=== PATIENT | male | born 1955 | race Caucasian/White ===

== ENCOUNTER 2016-08-18 09:36 | Inpatient (IN) | payer BC ==
[~2016-08-18] VITALS: Ht 182.9 cm; Wt 78.5 kg
[~2016-08-18 09:36] MED LIST: AMLO2.5T78 PO; DIPH1TAB25 PO; OXYC-284 PO
[2016-08-18] MEDS ORDERED: SOD CHLORIDE 0.9% 1,000 ML IV STA (09:57)
[2016-08-18 10:21] LABS: ADD SCAN DIFF NO
--- NOTE | 2016-08-18 10:28 | ERA ---
ER Documentation Chief Complaint Date/Time DATE: 08/18/16 TIME: 10:26 Chief Complaint Sent by clinic for blood transfusion Hgb 6.6 HPI This 61-year-old male was called by clinic to inform him of labs last Sunday showing he had a hemoglobin of 6.6. Patient is very symptomatic and states that he cannot walk 20 feet without getting so tired that he has to sit down he feels like is going to pass out. Also has shortness of breath. He is currently receiving chemotherapy for skin cancer. Last chemo was 2 weeks ago. He has not received a transfusion prior. Denies chest pain. Has nausea on and off but none currently. ROS All systems reviewed and are negative except as per history of present illness. Medications Home Meds Discontinued Reported Medications Capecitabine* (Xeloda*) 500 Mg Tablet, 500 MG PO TID for 28 Days, #84 TAB 08/18/16 Diphenoxylate Hcl-Atropine* (Lomotil*) 1 Tab Tab, 5 MG PO Q6H Y for DIARRHEA, TAB 01/15/15 Oxycodone Hcl-Acetaminophen* (Percocet*) 10-325 Mg Tablet, 1 TAB PO Q4H Y for PAIN, TAB 01/08/15 Discontinued Scripts Amlodipine Besylate* (Amlodipine Besylate*) 2.5 Mg Tablet, 5 MG PO DAILY, #30 TAB 1 Refill Prov:DAWIT CHU MD 01/15/15 Allergies Allergies: Coded Allergies: No Known Allergy (Unverified , 08/18/16) PMhx/Soc History of Surgery: Yes (HERNIA SX, CATARACT SX) Anesthesia Reaction: No Hx Neurological Disorder: No Hx Respiratory Disorders: No Hx Cardiac Disorders: Yes (HTN, 2013) Hx Psychiatric Problems: No Hx Miscellaneous Medical Probl: Yes (HIGH CHOLESTEROL) Hx Alcohol Use: No Hx Substance Use: No Hx Tobacco Use: No Smoking Status: Never smoker Physical Exam Vitals Vital Signs Date Time Temp Pulse Resp B/P Pulse Ox O2 Delivery O2 Flow Rate FiO2 08/18/16 10:22 Nasal Cannula 08/18/16 09:49 98.6 90 18 98/57 99 Physical Exam Const: [] Mild distress Head: Atraumatic Eyes: Normal Conjunctiva ENT: Normal External Ears, Nose and Mouth. Neck: Full range of motion..~ No meningismus. Resp: Clear to auscultation bilaterally Cardio: Regular rate and rhythm, no murmurs Abd: Soft, non tender, non distended. Normal bowel sounds Skin: No petechiae or rashes, pale Back: No midline or flank tenderness Ext: No cyanosis, or edema Neur: Awake and alert and oriented 3, no focal deficit Psych: Normal Mood and Affect Result Diagram: 08/19/16 0510 08/19/16 0510 Results 24 hrs Laboratory Tests Test 08/18/16 10:06 White Blood Count 1.510^3/ul Red Blood Count 1.7910^6/ul Hemoglobin 6.5g/dl Hematocrit 18.9% Mean Corpuscular Volume 105.6fl Mean Corpuscular Hemoglobin 36.3pg Mean Corpuscular Hemoglobin Concent 34.4g/dl Red Cell Distribution Width 15.6% Platelet Count 69918^3/UL Mean Platelet Volume 10.1fl Neutrophils % 42.0% Band Neutrophils % 15.0% Lymphocytes % 42.0% Monocytes % 1.0% Neutrophils # 0.610^3/ul Lymphocytes # 0.610^3/ul Monocytes # 0.010^3/ul Prothrombin Time 13.8Sec Prothrombin Time Ratio 1.1 INR International Normalized Ratio 1.06 Activated Partial Thromboplast Time 25.8Sec Sodium Level 138mmol/L Potassium Level 4.0mmol/L Chloride Level 102mmol/L Carbon Dioxide Level 26mmol/L Anion Gap 14 Blood Urea Nitrogen 29mg/dl Creatinine 2.00mg/dl Glucose Level 107mg/dl Calcium Level 7.0mg/dl Total Bilirubin 0.2mg/dl Direct Bilirubin 0.00mg/dl Indirect Bilirubin 0.2mg/dl Aspartate Amino Transf (AST/SGOT) 15IU/L Alanine Aminotransferase (ALT/SGPT) 21IU/L Alkaline Phosphatase 73IU/L Troponin I < 0.012ng/ml Total Protein 6.3g/dl Albumin 4.3g/dl Globulin 2.00g/dl Albumin/Globulin Ratio 2.15 Current Medications Medications (Trade) Dose Ordered Sig/Andrey Route PRN Reason Start Time Stop Time Status Last Admin Dose Admin Sodium Chloride (NS) 1,000 ml @ 1,000 mls/hr Q1H STAT IV 08/18/16 09:57 08/18/16 10:56 DC 08/18/16 10:25 Procedures/MDM Acute symptomatic anemia likely secondary to bone marrow suppression from chemotherapy. Renal insufficiency. He has obvious symptoms of decreased oxygen carrying capacity with no evidence of myocardial injury yet. He will be admitted to prevent any further compensation. IV fluid and PRBC transfusion started in ER. He will be admitted for monitoring and further workup. EKG interpretation: Normal sinus rhythm rate of 80, left axis deviation, no ST or T-wave changes concerning for acute ischemia, normal intervals. performance improvement analyst interpretation: Normal sinus rhythm without arrhythmia Departure Diagnosis: Primary Impression: Symptomatic anemia Additional Impression: Renal insufficiency Condition: RAUL Torres DO Aug 18, 2016 10:28
[2016-08-18 10:31] LABS: ABNORMAL IP MESSAGE 1; HEMATOCRIT 18.9 % (42.0-52.0); MEAN CORPUSCULAR HEMOGLOBIN 36.3 pg (29.0-33.0); MEAN CORPUSCULAR HGB CONC 34.4 g/dl (32.0-37.0); MEAN CORPUSCULAR VOLUME 105.6 fl (82.0-101.0); MEAN PLATELET VOLUME 10.1 fl (7.4-10.4); PLATELET COUNT 132 10^3/UL (140-415); RED BLOOD COUNT 1.79 10^6/ul (4.70-6.10); RED CELL DISTRIBUTION WIDTH 15.6 % (11.5-14.5); WHITE BLOOD COUNT 1.5 10^3/ul (4.8-10.8)
[2016-08-18 10:44] LABS: ALANINE AMINOTRANSFERASE 21 IU/L (13-69); ALBUMIN 4.3 g/dl (3.3-4.9); ALBUMIN/GLOBULIN RATIO 2.15; ALKALINE PHOSPHATASE 73 IU/L (42-121); ANION GAP 14 (8-16); ASPARTATE AMINO TRANSFERASE 15 IU/L (15-46); BILIRUBIN,INDIRECT 0.2 mg/dl (0-1.1); BILIRUBIN,TOTAL 0.2 mg/dl (0.2-1.3); BLOOD UREA NITROGEN 29 mg/dl (7-20); CARBON DIOXIDE 26 mmol/L (21-31); CHLORIDE 102 mmol/L (97-110); GLUCOSE 107 mg/dl (70-220); SODIUM 138 mmol/L (135-144); TOTAL PROTEIN 6.3 g/dl (6.1-8.1)
[2016-08-18 10:46] LABS: INR 1.06; PROTIME 13.8 Sec (12.2-14.2); PT RATIO 1.1
[2016-08-18 10:47] LABS: PARTIAL THROMBOPLASTIN TIME 25.8 Sec (25.0-35.0)
[2016-08-18 10:57] LABS: TROPONIN-I < 0.012 ng/ml (0.00-0.12)
[2016-08-18 11:09] LABS: HEMOGLOBIN 6.5 g/dl (14.0-18.0)
[2016-08-18] MEDS ORDERED: CAPE500T11 PO (12:03)
[2016-08-18 12:08] LABS: LYMPHOCYTES # 0.6 10^3/ul (0.8-2.9); NEUTROPHIL # 0.6 10^3/ul (1.6-7.5)
[2016-08-18] MEDS ORDERED: SOD CHLORIDE 0.9% 250 ML IV ONE (13:20)
[2016-08-18] MEDS ORDERED: ACETAMINOPHEN 325 MG TAB PO PRN (13:30)
[2016-08-18] MEDS ORDERED: ONDANSETRON 4 MG INJ IV PRN ×2 (13:30→17:00)
--- NOTE | 2016-08-18 16:43 | HP ---
Date/Time of Note Date/Time of Note DATE: 08/18/16 TIME: 16:35 Assessment/Plan VTE Prophylaxis VTE Prophylaxis Intervention: SCD's Assessment/Plan Chief Complaint/Hosp Course 1. Pancytopenia with macrocytic anemia likely secondary to chemotherapy Check B12 and folate levels Patient denies any melena Transfuse 2 units packed red blood cells 2. Metastatic squamous cell skin cancer Follow-up oncologist as outpatient Prophylaxis: SCDs Problems: HPI/ROS Admit Date/Time Admit Date/Time August 18, 2016 Hx of Present Illness Patient is a 61-year-old male with a history of metastatic squamous cell skin cancer. Patient had been on chemotherapy in the past appear to have resolution of the metastatic cancer. Patient been off chemotherapy for 2 years was found to have return of malignancy the patient was started on chemotherapy several months ago. Patient was sent from PCPs office for anemia of note patient does state that he recently has been feeling short of breath and weak. In the ER patient's hemoglobin was found to be 6.5. Patient has no other reported complaints at this time. Patient denies any nausea vomiting or abdominal pain. Patient denies any diarrhea or melena. ROS Constitutional: fatigue Eyes: no complaints ENT: no complaints Respiratory: shortness of breath Cardiovascular: no complaints Gastrointestinal: no complaints Genitourinary: no complaints Musculoskeletal: no complaints Skin: no complaints Neurologic: no complaints Endocrine: no complaints Lymphatic: no complaints Psychological: nl mood/affect, no complaints Immunologic: no complaints PMH/Family/Social Past Medical History Metastatic squamous cell skin cancer status post chemotherapy the past patient was in remission and recently was found to have recurrence of cancer and was started chemotherapy several months ago Past Surgical History Past Surgical Hx: no surgical history, other Family History Significant Family History: no pertinent family hx Social History Alcohol Use: none Smoking Status: Never smoker Drug Use: none Exam/Review of Systems Vital Signs Vitals Vital Signs Date Time Temp Pulse Resp B/P Pulse Ox O2 Delivery O2 Flow Rate FiO2 08/18/16 13:38 98.0 71 18 129/71 08/18/16 10:22 Nasal Cannula 08/18/16 09:49 99 Exam Constitutional: alert, oriented Head: normocephalic Respiratory: clear to auscultation Cardiovascular: regular rate and rhythm Gastrointestinal: soft, No distended Musculoskeletal: nl extremities to inspection Labs Result Diagram: 08/18/16 1006 08/18/16 1006 YEIMY SANTIZO Aug 18, 2016 16:43
[2016-08-18] MEDS ORDERED: HYDROCODONE/APAP (5/325) TAB PO PRN (17:00)
[2016-08-18] MEDS ORDERED: MAGNESIUM HYDROXIDE 30ML CUP PO PRN (17:00)
[2016-08-18] MEDS ORDERED: NACL 0.9% 3 ML SYG IV SCH (17:00)
[2016-08-18] MEDS ORDERED: DOCUSATE SODIUM 100 MG CAP PO PRN (17:00)
[2016-08-18] MEDS ORDERED: ZOLPIDEM 5 MG TAB PO PRN (17:00)
[2016-08-18] MEDS ORDERED: morphine 2 MG INJ IV PRN (17:00)
[2016-08-18 18:05] VITALS: TEMP 98.3
[2016-08-18 18:52] VITALS: BP 164/78; PULSE 71; RESP 18
[2016-08-18 19:45] VITALS: BP 138/75; RESP 20
[2016-08-18 23:59] VITALS: Ht 182.9 cm; Wt 78.5 kg
[2016-08-19] MEDS: ACETAMINOPHEN 325 MG TAB PO PRN ×2 (01:55→13:02)
[2016-08-19 02:11] VITALS: BP 167/73; RESP 18
[2016-08-19 06:20] LABS: ADD SCAN DIFF NO
[2016-08-19 06:48] LABS: ABNORMAL IP MESSAGE 1; HEMATOCRIT 25.7 % (42.0-52.0); HEMOGLOBIN 9.1 g/dl (14.0-18.0); MEAN CORPUSCULAR HGB CONC 35.4 g/dl (32.0-37.0); MEAN CORPUSCULAR VOLUME 101.6 fl (82.0-101.0); MEAN PLATELET VOLUME 9.9 fl (7.4-10.4); PLATELET COUNT 91 10^3/UL (140-415); RED BLOOD COUNT 2.53 10^6/ul (4.70-6.10); RED CELL DISTRIBUTION WIDTH 15.3 % (11.5-14.5); WHITE BLOOD COUNT 9.2 10^3/ul (4.8-10.8)
[2016-08-19 07:00] LABS: ALBUMIN 3.8 g/dl (3.3-4.9); ALBUMIN/GLOBULIN RATIO 2.11; BILIRUBIN,INDIRECT 0.5 mg/dl (0-1.1); BILIRUBIN,TOTAL 0.5 mg/dl (0.2-1.3); CALCIUM 6.6 mg/dl (8.4-10.2); CHOL/HDL RATIO 3.3 RATIO; CREATININE 1.67 mg/dl (0.61-1.24); PHOSPHORUS 3.4 mg/dl (2.5-4.9); POTASSIUM 3.8 mmol/L (3.5-5.1); TOTAL PROTEIN 5.6 g/dl (6.1-8.1)
[2016-08-19 07:02] LABS: MAGNESIUM 0.7 mg/dl (1.7-2.5)
[2016-08-19 07:52] VITALS: BP 142/82; RESP 20
[2016-08-19] MEDS ORDERED: MAGNESIUM SULFATE 4 GM/100 ML 100 ML IVPB ONE ×2 (08:00→10:00)
--- NOTE | 2016-08-19 10:03 | PDOCDIS ---
Discharge Instructions CONDITION Patient Condition: Good HOME CARE INSTRUCTIONS: Diet Instructions: Regular ACTIVITY: Activity Restrictions: No Restrictions FOLLOW UP/APPOINTMENTS Follow-up Plan F/U WITH YOUR PCP IN 1-2 WEEKS AND WITH YOUR ONCOLOGIST SCHEDULED YEIMY SANTIZO Aug 19, 2016 10:03
[2016-08-19 10:24] LABS: LYMPHOCYTES # 4.5 10^3/ul (0.8-2.9); NEUTROPHIL # 2.5 10^3/ul (1.6-7.5)
--- NOTE | 2016-08-19 12:05 | DS ---
Date/Time of Note Date/Time of Note DATE: 08/19/16 TIME: 11:58 Discharge Summary Admission/Discharge Info Admit Date/Time Aug 18, 2016 at 13:18 Discharge Date/Time August 19, 2016 Discharge Diagnosis 1. Pancytopenia with macrocytic anemia likely secondary to chemotherapy- improved B12 and folate levels normal Patient denies any melena Status post 2 units packed red blood cells 2. Metastatic squamous cell skin cancer Follow-up oncologist as outpatient 3. Hypomagnesemia-repleted Patient Condition: Good Hospital Course This 61-year-old male history of metastatic squamous cell cancer was been on chemotherapy and presents with symptomatic anemia. Patient was also noted to have pancytopenia macrocytic anemia. B12 and folate levels are normal, patient was given 2 units of packed red blood cells. Anemia is secondary to chemotherapy, patient denies any melena. On the day of discharge patient's vitals labs and physical exam were stable. Of note the magnesium was low and was repleted, patient had no acute complaints on the day of discharge and questions were answered. Home Meds Discontinued Reported Medications Capecitabine* (Xeloda*) 500 Mg Tablet, 500 MG PO TID for 28 Days, #84 TAB 08/18/16 Diphenoxylate Hcl-Atropine* (Lomotil*) 1 Tab Tab, 5 MG PO Q6H Y for DIARRHEA, TAB 01/15/15 Oxycodone Hcl-Acetaminophen* (Percocet*) 10-325 Mg Tablet, 1 TAB PO Q4H Y for PAIN, TAB 01/08/15 Discontinued Scripts Amlodipine Besylate* (Amlodipine Besylate*) 2.5 Mg Tablet, 5 MG PO DAILY, #30 TAB 1 Refill Prov:DAWIT CHU MD 01/15/15 Follow-up Plan Follow with PCP 1-2 weeks and with oncologist as scheduled Primary Care Provider Not On Staff Doctor Time spent on discharge: > 30 minutes Pending Labs Laboratory Tests Test 08/19/16 05:10 08/19/16 07:11 White Blood Count 9.210^3/ul (4.8-10.8) Red Blood Count 2.5310^6/ul (4.70-6.10) Hemoglobin 9.1g/dl (14.0-18.0) Hematocrit 25.7% (42.0-52.0) Mean Corpuscular Volume 101.6fl (82.0-101.0) Mean Corpuscular Hemoglobin 36.0pg (29.0-33.0) Mean Corpuscular Hemoglobin Concent 35.4g/dl (32.0-37.0) Red Cell Distribution Width 15.3% (11.5-14.5) Platelet Count 9110^3/UL (140-415) Mean Platelet Volume 9.9fl (7.4-10.4) Neutrophils % 27.0% (39.0-77.0) Band Neutrophils % 24.0% (0.0-5.0) Lymphocytes % 49.0% (15.0-51.0) Eosinophils % % (0.0-7.0) Neutrophils # 2.510^3/ul (1.6-7.5) Lymphocytes # 4.510^3/ul (0.8-2.9) Eosinophils # 10^3/ul (0.0-0.5) Sodium Level 136mmol/L (135-144) Potassium Level 3.8mmol/L (3.5-5.1) Chloride Level 104mmol/L (97-110) Carbon Dioxide Level 28mmol/L (21-31) Anion Gap 8 (8-16) Blood Urea Nitrogen 25mg/dl (7-20) Creatinine 1.67mg/dl (0.61-1.24) Glucose Level 81mg/dl (70-220) Hemoglobin A1c 5.2% (0-5.9) Calcium Level 6.6mg/dl (8.4-10.2) Phosphorus Level 3.4mg/dl (2.5-4.9) Magnesium Level 0.7mg/dl (1.7-2.5) Total Bilirubin 0.5mg/dl (0.2-1.3) Direct Bilirubin 0.00mg/dl (0.00-0.20) Indirect Bilirubin 0.5mg/dl (0-1.1) Aspartate Amino Transf (AST/SGOT) 16IU/L (15-46) Alanine Aminotransferase (ALT/SGPT) 22IU/L (13-69) Alkaline Phosphatase 71IU/L (42-121) Total Protein 5.6g/dl (6.1-8.1) Albumin 3.8g/dl (3.3-4.9) Globulin 1.80g/dl (1.3-3.2) Albumin/Globulin Ratio 2.11 Triglycerides Level 178mg/dl (0-149) Cholesterol Level 146mg/dl (100-200) LDL Cholesterol, Calculated 66mg/dl HDL Cholesterol 44mg/dl (30-78) Cholesterol/HDL Ratio 3.3RATIO Vitamin B12 Level 452pg/ml (239-931) Folate 12.0ng/ml (2.8-20.0) Lab Scanned Report BLOOD [id number] YEIMY SANTIZO Aug 19, 2016 12:05
== END 2016-08-19 14:20 | disposition home or self-care (01) | DRG 812 ==
LOC: E/R 09:36 → MS2 13:18
PROVIDERS: ADMIT Hospitalist; ATTEND Hospitalist
PROC: 30233N1 Transfusion of Nonautologous Red Blood Cells into Peripheral Vein, Percutaneous Approach (ICD-10-PCS; principal; 2016-08-18)
DX: D64.81 Anemia due to antineoplastic chemotherapy (principal); C79.2 Secondary malignant neoplasm of skin; D61.810 Antineoplastic chemotherapy induced pancytopenia; N28.9 Disorder of kidney and ureter, unspecified; E83.42 Hypomagnesemia; Z92.21 Personal history of antineoplastic chemotherapy
CPT/HCPCS: 36415; 36430; 80053; 80061; 82607; 82746; 83036; 83735; 84100; 84484; 85025; 85610; 85730; 86850; 86900; 86901; 86920; 93005; J2405; J7030; J7040; P9016

== ENCOUNTER 2017-09-15 17:43 | Inpatient (IN) | END 2017-09-16 10:48 | disposition home or self-care (01) | DRG 312 ==